=== PATIENT | male | born 1975 | race American Indian/Alaskan Native ===

== ENCOUNTER 2017-10-29 22:18 | Emergency (ER) | payer OTHER ==
[2017-10-29 22:25] VITALS: BMI 27.3
[2017-10-29 22:26] VITALS: RESP 17
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
--- NOTE | 2017-10-29 23:16 | CT ---
EXAM: CT Head Without Intravenous Contrast CLINICAL HISTORY: 42 years old, male; Signs and symptoms; Dizziness and other: Headache; Additional info: Headache /dizzy TECHNIQUE: Axial computed tomography images of the head/brain without intravenous contrast. All CT scans at this facility use one or more dose reduction techniques, viz.: automated exposure control; ma/kV adjustment per patient size (including targeted exams where dose is matched to indication; i.e. head); or iterative reconstruction technique. COMPARISON: No relevant prior studies available. FINDINGS: Brain: No acute intracranial hemorrhage. No significant white matter disease. No edema. Ventricles: No significant ventriculomegaly. Bones: No acute displaced fracture. Sinuses: Unremarkable as visualized. No acute sinusitis. Mastoid air cells: Unremarkable as visualized. No mastoid effusion. IMPRESSION: No acute intracranial hemorrhage, or suspicious mass effect.
[2017-10-30 01:11] VITALS: BP 135/72; PULSE 74; TEMP 98.1; O2SAT 98
== END 2017-10-29 23:45 | disposition home or self-care (01) ==
LOC: ED 22:18
DX: R51 Headache (principal); F17.210 Nicotine dependence, cigarettes, uncomplicated

== ENCOUNTER 2018-07-28 11:25 | Emergency (ER) | payer SELFPAY ==
[2018-07-28 11:25] VITALS: BMI 27.3
[2018-07-28 11:53] VITALS: BP 116/77; O2SAT 99
[2018-07-28] MEDS ORDERED: Albuterol-Ipratrop 3 mg / 0.5 (3 ml) UD IH STA (11:53)
[2018-07-28] MEDS ORDERED: MethylPREDNISolone 40 mg Vial IM STA (11:53)
--- NOTE | 2018-07-28 12:09 | ED PDOC ---
Arrival/HPI - General Chief Complaint: Cough, Cold, Congestion Time Seen by Provider: 07/28/18 11:27 Historian: Patient - History of Present Illness Narrative History of Present Illness (Text): 07/28/18 11:56 42 y/o M w/ h/o bronchitis presenting to t Time/Duration: Other (3 days) Symptom Onset: Gradual Symptom Course: Worsening Quality: Fullness Severity Level: Moderate Activities at Onset: Rest Context: Home Past Medical History - Provider Review Nursing Documentation Reviewed: Yes - Infectious Disease Hx of Infectious Diseases: None - Cardiac Hx Angina: No - Pulmonary Hx Respiratory Disorders: No - Neurological Hx Neurological Disorder: No - HEENT Hx HEENT Disorder: No - Renal Hx Renal Disorder: No - Endocrine/Metabolic Hx Endocrine Disorders: No - Hematological/Oncological Hx Blood Disorders: No - Musculoskeletal/Rheumatological Hx Musculoskeletal Disorders: No - Gastrointestinal Hx Gastrointestinal Disorders: No - Genitourinary/Gynecological Hx Genitourinary Disorders: No - Psychiatric Hx Psychophysiologic Disorder: No Hx Substance Use: No - Anesthesia Hx Anesthesia: No Family/Social History - Physician Review Nursing Documentation Reviewed: Yes Family/Social History: No Known Family HX Smoking Status: Heavy Smoker > 10 Cigarettes Daily Hx Alcohol Use: Yes Hx Substance Use: No Allergies/Home Meds Allergies/Adverse Reactions: Allergies No Known Allergies Allergy (Unverified 10/29/17 22:44) Physical Exam Vital Signs Temp Pulse Resp BP Pulse Ox 07/28/18 13:15 98.2 F 78 19 99 07/28/18 11:37 98.3 F 77 18 116/77 99 Medical Decision Making ED Course and Treatment: 07/28/2018 12:31 Chest X-ray IMPRESSION: No active disease. Dictator: Wayne Roe MD - RAD Interpretation Radiology Orders: 07/28/18 11:53 CHEST TWO VIEWS (PA/LAT) [RAD] Stat - Medication Orders Current Medication Orders: Discontinued Medications Albuterol/Ipratropium (Duoneb 3 Mg/0.5 Mg (3 Ml) Ud) 3 ml IH STAT STA Stop: 07/28/18 11:54 Last Admin: 07/28/18 12:12 Dose: 3 ml Methylprednisolone (Solu-Medrol) 125 mg IM STAT STA Stop: 07/28/18 12:00 Last Admin: 07/28/18 12:09 Dose: 125 mg IM Administration Charges Document 07/28/18 12:09 [email or web address] (Rec: 07/28/18 12:11 [email or web address] [id number]) Injection Site MAR Injection Site Right Deltoid Charges for Administration # of IM Administrations 1 Disposition/Present on Arrival - Present on Arrival Any Indicators Present on Arrival: No History of DVT/PE: No History of Uncontrolled Diabetes: No Urinary Catheter: No History of Decub. Ulcer: No History Surgical Site Infection Following: None - Disposition Have Diagnosis and Disposition been Completed?: Yes Diagnosis: Bronchitis Disposition: HOME/ ROUTINE Disposition Time: 13:06 Patient Plan: Discharge Patient Problems: Current Active Problems Problem Status Onset Bronchitis Acute Condition: IMPROVED Discharge Instructions (ExitCare): Acute Bronchitis, Adult (DC) Prescriptions: Albuterol HFA [Ventolin HFA 90 mcg/actuation (8 g)] 2 puff IH [id number] #1 puff Methylprednisolone [Medrol Dose Pack (21 tabs)] 4 mg PO DAILY #21 mg Referrals: Griffin Couch MD [Primary Care Provider] - Follow up with primary Forms: [employer] ([place]), WORK NOTE
--- NOTE | 2018-07-28 12:33 | RAD ---
Date of service: 07/28/2018 HISTORY: sob COMPARISON: No prior. TECHNIQUE: Chest PA and lateral FINDINGS: LUNGS: No active pulmonary disease. PLEURA: No significant pleural effusion identified. No pneumothorax apparent. CARDIOVASCULAR: Normal. OSSEOUS STRUCTURES: No significant abnormalities. VISUALIZED UPPER ABDOMEN: Normal. OTHER FINDINGS: None. IMPRESSION: No active disease.
[2018-07-28 13:16] VITALS: PULSE 78; RESP 19; TEMP 98.2
== END 2018-07-28 13:41 | disposition home or self-care (01) ==
LOC: ED 11:25
DX: J40 Bronchitis, not specified as acute or chronic (principal); F17.210 Nicotine dependence, cigarettes, uncomplicated
CPT/HCPCS: 71046; 96372; 99282; J2930